=== PATIENT | male | born 1945 | race Caucasian/White ===

== ENCOUNTER → 2018-07-01 | Outpatient (CLI) | payer MEDICARE ==
[~2018-07-01] VITALS: Ht 185.4 cm; Wt 97.5 kg
[~2018-07-01] MED LIST: ALLO300T2 PO; ASPI-1197 PO; CHLO50TA PO; LOSA100T58 PO; METF-446 PO; METO100T14 PO; MULT-685 PO; OMEP40CA37 PO; REGADENOSON 0.4 MG/5 ML PF SYG IVP SCH; SIMV80TA91 PO
== END | disposition home or self-care (01) ==
LOC: SHCH 07:52
PROVIDERS: ATTEND Internal Medicine Cardiovascular Disease
DX: I25.9 Chronic ischemic heart disease, unspecified (principal); I25.10 Atherosclerotic heart disease of native coronary artery without angina pectoris
CPT/HCPCS: 78452; 93017; 96374; A9500 ×2; J2785

== ENCOUNTER 2018-08-05 07:06 | Observation (INO) | payer MEDICARE ==
[2018-08-02 08:39] VITALS: BP 134/63
[2018-08-02 08:47] LABS: BASOPHILS % (AUTO) 0.6 % (0.0-5.0); EOSINOPHILS % (AUTO) 3.3 % (0.0-8.0); HEMATOCRIT 44.5 % (42-54); LYMPHOCYTES % (AUTO) 27.7 % (21.0-51.0); MEAN CORPUSCULAR HEMOGLOBIN 31.8 pg (27.0-33.0); MEAN CORPUSCULAR HGB CONC 34.2 g/dL (32.0-36.0); MEAN CORPUSCULAR VOLUME 93.2 fL (79-99); MONOCYTES % (AUTO) 9.5 % (3.0-13.0); NEUTROPHILS % (AUTO) 58.9 % (40.0-77.0); PLATELET COUNT (AUTO) 142 K/uL (130-400); RED BLOOD CELL COUNT(AUTO) 4.78 MIL/uL (4.50-6.20); RED CELL DISTRIBUTION WIDTH 13.7 % (11.0-15.5); WHITE BLOOD COUNT (AUTO) 5.3 K/uL (4.8-10.8)
[2018-08-02 08:53] LABS: APPEARANCE,URINE Clear (CLEAR); BILIRUBIN,URINE Negative (NEGATIVE); COLOR,URINE Yellow (YELLOW); GLUCOSE, URINE (UA) Negative (NEGATIVE); KETONES,URINE Negative (NEGATIVE); LEUKOCYTE ESTERASE ,URINE Negative (NEGATIVE); NITRATE,URINE Negative (NEGATIVE); OCCULT BLOOD,URINE Negative (NEGATIVE); PROTEIN,URINE Negative (NEGATIVE)
[2018-08-02 08:58] LABS: CREATININE 1.4 mg/dL (0.5-1.5); INR 1.07 (0.85-1.15); PARTIAL THROMBOPLASTIN TIME 30.3 SEC (26.3-35.5); POTASSIUM 4.6 mmol/L (3.5-5.1); PROTHROMBIN TIME 11.2 SEC (9.6-11.6)
--- NOTE | 2018-08-02 17:06 | NUR ---
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 Called patient and advised him, no concerns voiced.
[2018-08-05] VITALS (18 sets, daily range): BP systolic 90–162; BP diastolic 40–76
[~2018-08-05] VITALS: Ht 182.9 cm; Wt 95.7 kg
[~2018-08-05 07:06] MED LIST changes: -ASPI-1197 PO; +ATOR-2 PO; -CHLO50TA PO; -METF-446 PO; -REGADENOSON 0.4 MG/5 ML PF SYG IVP SCH; -SIMV80TA91 PO; +SODIUM CHLORIDE 0.9% 500ML 500 ML IV SCH
[2018-08-05] MEDS ORDERED: SODIUM CHLORIDE 0.9% 1000ML 1,000 ML IV ONE (08:01)
[2018-08-05] MEDS ORDERED: SODIUM CHLORIDE 0.9% 1000ML 1,000 ML IV SCH (09:30)
[2018-08-05] MEDS ORDERED: NITROGLYCERIN 5 MG/ML 10 ML VIAL IV ONE (10:11)
[2018-08-05] MEDS ORDERED: IOHEXOL 350 MG/ML 100ML INFUS..BTL IV ONE (10:11)
[2018-08-05] MEDS ORDERED: LIDOCAINE HCL 2% 20ML ONE (10:11)
[2018-08-05] MEDS ORDERED: IOHEXOL-350 50ML VIAL IV ONE (10:11)
--- NOTE | 2018-08-05 10:19 | NUR ---
TF PATIENT TAKEN FOR TEARER PRESS CLIPPING VIA BED BY ISABEL/BIPIN
[2018-08-05] MEDS ORDERED: MIDAZOLAM HCL 1 MG/ML 2ML VIAL ONE (10:38)
[2018-08-05] MEDS ORDERED: IOHEXOL-350 75 ML VIAL IV ONE (10:49)
[2018-08-05] MEDS ORDERED: HEPARIN SODIUM 1000UNIT/ML 10ML VIAL ONE (10:55)
[2018-08-05] MEDS ORDERED: CLOPIDOGREL BISULFATE 300 MG TAB ONE (11:27)
[2018-08-05] MEDS ORDERED: ASPIRIN 325MG EC TAB 325 MG TABLET.DR PO ONE (11:27)
[2018-08-05] MEDS ORDERED: ACETAMINOPHEN-CODEINE 300/30MG TAB PO PRN ×2 (11:30)
[2018-08-05] MEDS ORDERED: TEMAZEPAM 30 MG CAP PO PRN (11:30)
[2018-08-05] MEDS ORDERED: ONDANSETRON HCL 4 MG/2 ML VIAL IVP PRN (11:30)
[2018-08-05] MEDS ORDERED: ONDANSETRON HCL 4 MG/2 ML VIAL IVP SCH (11:30)
[2018-08-05] MEDS ORDERED: MORPHINE SULFATE 5 MG/ML VIAL IVP SCH (11:30)
--- NOTE | 2018-08-05 11:41 | NUR ---
TSF PT. WAS STENTED AND WILL BE GOING TO RM 229. PER NATALIE/BIPIN.
--- NOTE | 2018-08-05 12:00 | NUR ---
RECEIVED FROM [employer] VIA BED ACCOMPANIED BY Shaneka LIRIANO RN. PT. [id number], RESP.'S EVEN AND UNLABORED. DENIES ANY C/O SOB, DENIES ANY CURRENT PAIN. RIGHT GROIN SOFT, 6FR. ARTERIAL SHEATH IN PLACE, NO ECCHYMOSIS OR HEMATOMA NOTED; INSTRUCTED ON STRICT BR PER MD ORDERS, VERBALIZED UNDERSTANDING. PLACED IN REVERSE [place] POSITION FOR COMFORT. CALL LIGHT WITHIN REACH, VERBALIZED ABILITY TO USE. SIDE RAILS UP.
--- NOTE | 2018-08-05 16:15 | NUR ---
STATES NEEDS TO HAVE BM. OFFERED BEDPAN. PT. DECLINED. STATES," WILL WAIT IT OUT (UNTIL BR COMPLETED)." SPOUSE AT BEDSIDE.
--- NOTE | 2018-08-05 16:50 | NUR ---
6FR. ARTERIAL SHEATH REMOVED INTACT BY Zhang HOOPER RN. PT. TOLERATED W/O C/O. RIGHT GROIN SOFT, NO HEMATOMA. CALL LIGHT WITHIN REACH.
--- NOTE | 2018-08-05 17:05 | NUR ---
RIGHT GROIN SOFT, UNCHANGED. CALL LIGHT WITHIN REACH.
--- NOTE | 2018-08-05 18:00 | NUR ---
CONT.'S ON BR. RIGHT GROIN, SOFT, NO ECCHYMOSIS OR HEMATOMA. CALL LIGHT WITHIN REACH.
--- NOTE | 2018-08-05 20:30 | NUR ---
S/P LEFT HEART CATH. RT. GROIN SOFT WITHOUT BLEEDING OR HEMATOMA. PEDAL PULSES PALPABLE. BEDREST OVER. PATIENT ASSISTED TO BATHROOM. TOLERATED WELL. HAD LARGE BM. BACK TO BED.
--- NOTE | 2018-08-05 21:30 | NUR ---
RT GROIN SOFT WITHOUT BLEEDING OR HEMATOMA. PEDAL PULSES PALPABLE.
--- NOTE | 2018-08-05 23:00 | NUR ---
RT. ROSY HUNTER.
[2018-08-06 03:46] VITALS: BP 111/68
[2018-08-06 05:33] LABS: HEMATOCRIT 42.4 % (42-54); MEAN CORPUSCULAR HEMOGLOBIN 31.6 pg (27.0-33.0); MEAN CORPUSCULAR HGB CONC 34.4 g/dL (32.0-36.0); NUCLEATED RED BLOOD CELLS 0.1 % (0.0-0.19); PLATELET COUNT (AUTO) 138 K/uL (130-400); RED BLOOD CELL COUNT(AUTO) 4.61 MIL/uL (4.50-6.20); RED CELL DISTRIBUTION WIDTH 13.9 % (11.0-15.5); WHITE BLOOD COUNT (AUTO) 7.1 K/uL (4.8-10.8)
[2018-08-06 05:47] LABS: CREATININE 1.4 mg/dL (0.5-1.5); POTASSIUM 4.1 mmol/L (3.5-5.1)
--- NOTE | 2018-08-06 06:00 | NUR ---
RT. GROIN SOFT WITHOUT BLEEDING OR HEMATOMA. PEDAL PULSES PALPABLE.
[2018-08-06] MEDS ORDERED: CLOP75TA32 PO (06:08)
[2018-08-06] MEDS ORDERED: PANTOPRAZOLE SODIUM 40 MG TABLET.DR PO SCH (07:30)
[2018-08-06 07:45] VITALS: BP 129/68
[2018-08-06] MEDS ORDERED: ASPIRIN 81MG TAB.CHEW PO SCH (08:00)
[2018-08-06] MEDS ORDERED: ATORVASTATIN CALCIUM 40 MG TABLET PO SCH (09:00)
[2018-08-06] MEDS ORDERED: MULTIVITAMIN TABLET PO SCH (09:00)
[2018-08-06] MEDS ORDERED: LOSARTAN 100 MG TABLET PO SCH (09:00)
[2018-08-06] MEDS ORDERED: METOPROLOL TARTRATE 50 MG TAB PO SCH (09:00)
[2018-08-06] MEDS ORDERED: NON-FORMULARY MEDICATION 1 EACH (Omeprazole 40 MG) PO SCH (09:00)
[2018-08-06] MEDS ORDERED: CLOPIDOGREL BISULFATE 75 MG TAB PO SCH (09:00)
[2018-08-06] MEDS ORDERED: ALLOPURINOL 300 MG TABLET PO SCH (09:00)
--- NOTE | 2018-08-06 09:00 | NUR ---
SITTING UP IN BED WATCHING TELEVISION WITHOUT C/O. CALL LIGHT WITHIN REACH.
--- NOTE | 2018-08-06 10:00 | NUR ---
HL REMOVED, CATHETER INTACT. DISCHARGE INSTRUCTIONS GIVEN, PT. AND SPOUSE AT BEDSIDE VERBALIZED MUTUAL UNDERSTANDING.
== END 2018-08-06 10:15 | disposition home or self-care (01) ==
LOC: DAH 07:06 → DAHIP 07:07 → 2AH 12:09
PROVIDERS: ADMIT Internal Medicine Cardiovascular Disease; ATTEND Internal Medicine Cardiovascular Disease
DX: I25.119 Atherosclerotic heart disease of native coronary artery with unspecified angina pectoris (principal); I12.9 Hypertensive chronic kidney disease with stage 1 through stage 4 chronic kidney disease, or unspecified chronic kidney disease; N18.3 Chronic kidney disease, stage 3 (moderate); E78.5 Hyperlipidemia, unspecified; Z79.899 Other long term (current) drug therapy; Z95.1 Presence of aortocoronary bypass graft
CPT/HCPCS: 36415 ×3; 71045; 80048 ×2; 80061; 81003; 85025; 85027; 85610; 85730 ×3; 92920; 93005 ×3; 93459; A4606; C1725; C1769; C1887; C1894; G0378 ×24; J1644 ×2; J2250; J3490 ×2; J7030; Q9965; Q9967 ×3; 99156; 99157

== ENCOUNTER → 2021-04-19 | Outpatient (CLI) | payer MEDICARE ==
[~2021-04-19] MED LIST changes: +CLOP75TA32 PO; +OMEP40CA21 PO; -OMEP40CA37 PO; -SODIUM CHLORIDE 0.9% 500ML 500 ML IV SCH
== END | disposition home or self-care (01) ==
LOC: SHCH 13:56
PROVIDERS: ATTEND Internal Medicine Cardiovascular Disease
DX: I35.2 Nonrheumatic aortic (valve) stenosis with insufficiency (principal); I12.9 Hypertensive chronic kidney disease with stage 1 through stage 4 chronic kidney disease, or unspecified chronic kidney disease; N18.9 Chronic kidney disease, unspecified; I25.10 Atherosclerotic heart disease of native coronary artery without angina pectoris; E78.5 Hyperlipidemia, unspecified; Z95.1 Presence of aortocoronary bypass graft
CPT/HCPCS: 93306

== ENCOUNTER 2021-06-16 05:46 | Day surgery (SDC) | payer MEDICARE ==
[2021-06-13 13:57] LABS: BASOPHILS % (AUTO) 0.5 % (0.0-5.0); EOSINOPHILS % (AUTO) 2.3 % (0.0-8.0); HEMATOCRIT 47.9 % (42-54); LYMPHOCYTES % (AUTO) 22.5 % (21.0-51.0); MEAN CORPUSCULAR VOLUME 94.1 fL (79-99); MONOCYTES % (AUTO) 10.7 % (3.0-13.0); NEUTROPHILS % (AUTO) 63.7 % (40.0-77.0); PLATELET COUNT (AUTO) 165 K/uL (130-400); RED BLOOD CELL COUNT(AUTO) 5.09 MIL/uL (4.50-6.20); RED CELL DISTRIBUTION WIDTH 13.3 % (11.0-15.5); WHITE BLOOD COUNT (AUTO) 7.9 K/uL (4.8-10.8)
[2021-06-13 14:04] LABS: CREATININE 1.8 mg/dL (0.5-1.5); POTASSIUM 4.7 mmol/L (3.5-5.1)
[2021-06-13 14:09] LABS: INR 1.06 (0.85-1.15); PROTHROMBIN TIME 11.5 SEC (9.6-11.6)
[2021-06-13 14:11] LABS: PARTIAL THROMBOPLASTIN TIME 28.9 SEC (26.3-35.5)
[2021-06-16] VITALS (8 sets, daily range): BP systolic 111–137; BP diastolic 56–80
[~2021-06-16] VITALS: Ht 185.4 cm; Wt 109.2 kg
[~2021-06-16 05:46] MED LIST changes: +AMLO-258 PO; +ASPI-1443 PO; -ATOR-2 PO; +EMPA10TA PO; +EPLE50TA9 PO; +FURO20TA4 PO; +GABA300C PO; -METO100T14 PO; +MULT-1367 PO; -MULT-685 PO; +TAMS-1 PO; +VITA0.4T20 PO
[2021-06-16] MEDS ORDERED: 0.9%NACL 1000ML 1,000 ML IV ONE (06:06)
[2021-06-16] MEDS ORDERED: ATOR-2 PO (06:42)
[2021-06-16] MEDS ORDERED: CARV25TA PO (06:42)
[2021-06-16] MEDS ORDERED: MIDAZOLAM HCL 1 MG/ML 2ML VIAL ONE ×2 (07:12→10:04)
[2021-06-16] MEDS ORDERED: LIDOCAINE HCL 1% MDV 50ML VIAL ONE (07:12)
[2021-06-16] MEDS ORDERED: MEPERIDINE-PF 25 MG/ML SYG ONE ×2 (07:12→10:04)
[2021-06-16] MEDS ORDERED: HEPARIN 10,000 UNIT/10ML (1,000 UNIT/ML) VIAL ONE (07:13)
[2021-06-16] MEDS ORDERED: HEPARIN 1,000 UNIT VIAL ONE (11:03)
[2021-06-16] MEDS ORDERED: PROTAMINE SULFATE 10 MG/ML 25ML VIAL IV ONE (11:44)
[2021-06-16] MEDS ORDERED: IOHEXOL-350 50ML VIAL IV ONE (11:45)
[2021-06-16] MEDS ORDERED: METOPROLOL TARTRATE 1 MG/ML 5ML VIAL IV ONE (11:52)
[2021-06-16] MEDS ORDERED: METO-391 PO (12:32)
[2021-06-16] MEDS ORDERED: METOPROLOL SUCCINATE 50 MG TAB.SR.24H PO SCH (13:00)
== END 2021-06-16 16:15 | disposition home or self-care (01) ==
LOC: DAH 05:46
PROVIDERS: ATTEND Internal Medicine Cardiovascular Disease
DX: I49.3 Ventricular premature depolarization (principal); I25.2 Old myocardial infarction; I25.10 Atherosclerotic heart disease of native coronary artery without angina pectoris; I12.9 Hypertensive chronic kidney disease with stage 1 through stage 4 chronic kidney disease, or unspecified chronic kidney disease; N18.9 Chronic kidney disease, unspecified; E78.5 Hyperlipidemia, unspecified; Z79.01 Long term (current) use of anticoagulants; Z79.899 Other long term (current) drug therapy; Z98.890 Other specified postprocedural states; Z95.1 Presence of aortocoronary bypass graft; Z87.891 Personal history of nicotine dependence; Z72.89 Other problems related to lifestyle; Z79.82 Long term (current) use of aspirin
CPT/HCPCS: 36415; 80048; 82948 ×2; 85025; 85347 ×2; 85610; 85730; 93005 ×2; 93623; 93654; A4215; A4216; A4221; A4222; A4223 ×3; A4606; A4649 ×2; A4663; C1730; C1731; C1732; C1760; C1894 ×5; J1644 ×3; J2175 ×2; J2250 ×2; J2720; J3490 ×2; J7030; Q9967; 99156; 99157

== ENCOUNTER → 2022-05-22 | Outpatient (CLI) | payer MEDICARE ==
[~2022-05-22] MED LIST changes: -ALLO300T2 PO; +ATOR-2 PO; +CARV25TA PO; +METO-391 PO
== END | disposition home or self-care (01) ==
LOC: SHCH 09:11
PROVIDERS: ATTEND Internal Medicine Cardiovascular Disease
DX: I35.0 Nonrheumatic aortic (valve) stenosis (principal); I49.3 Ventricular premature depolarization; I11.9 Hypertensive heart disease without heart failure; I48.91 Unspecified atrial fibrillation
CPT/HCPCS: 93306

== ENCOUNTER → 2022-12-28 | Outpatient (CLI) | payer MEDICARE ==
[~2022-12-28] MED LIST changes: -LOSA100T58 PO; +LOSA100T59 PO
== END | disposition home or self-care (01) ==
LOC: RAH 07:55
PROVIDERS: ATTEND Physical Medicine & Rehabilitation
DX: M47.27 Other spondylosis with radiculopathy, lumbosacral region (principal); M43.16 Spondylolisthesis, lumbar region; M48.07 Spinal stenosis, lumbosacral region; I70.0 Atherosclerosis of aorta
CPT/HCPCS: 72114

== ENCOUNTER → 2023-09-14 | Outpatient (CLI) | payer MEDICARE ==
[~2023-09-14] MED LIST changes: +EPLE50TA16 PO; -EPLE50TA9 PO
== END | disposition home or self-care (01) ==
LOC: RAH 11:30
PROVIDERS: ATTEND Family Medicine
DX: Z01.818 Encounter for other preprocedural examination (principal); R05.9 Cough, unspecified
CPT/HCPCS: 71046

== ENCOUNTER 2024-06-16 05:54 | Day surgery (SDC) | payer MEDICARE ==
[2024-06-16] VITALS (10 sets, daily range): BP systolic 91–116; BP diastolic 54–63; PULSE 54–69; RESP 14–17; TEMP 97–97.9
[~2024-06-16] VITALS: Ht 177.8 cm; Wt 113.4 kg
[~2024-06-16 05:54] MED LIST changes: +ALLO300T2 PO; +AMLO-257 PO; -AMLO-258 PO; -ATOR-2 PO; -CARV25TA PO; -CLOP75TA32 PO; -EMPA10TA PO; +ENALAPRIL PO; -EPLE50TA16 PO; +GABA-1405 PO; -GABA300C PO; +GLIP-300 PO; +ROSU40TA88 PO; -TAMS-1 PO; +TAMS-55 PO; +TOPI-97 PO; -VITA0.4T20 PO
[2024-06-16] MEDS ORDERED: 0.9%NACL 1000ML 1,000 ML IV ONE (06:13)
[2024-06-16] MEDS: 0.9%NACL 1000ML 1,000 ML IV ONE (07:17)
[2024-06-16] MEDS ORDERED: proPOFol 10 MG/ML 20ML VIAL IV ONE (08:31)
--- NOTE | 2024-06-16 09:36 | NUR ---
Full and complete discharge instructions given to Patient and Family both verbally and in writing. Explained GI procedure precautions and follow up. All questions answered. PIV removed with catheter tip intact. Home with Family W/C to POV.
== END 2024-06-16 09:30 | disposition home or self-care (01) ==
LOC: DAH 05:54 → ENDO 05:54
PROVIDERS: ATTEND Internal Medicine Gastroenterology
DX: K22.711 Barrett's esophagus with high grade dysplasia (principal); K29.50 Unspecified chronic gastritis without bleeding; I10 Essential (primary) hypertension; K21.9 Gastro-esophageal reflux disease without esophagitis; M10.9 Gout, unspecified; E78.5 Hyperlipidemia, unspecified; I25.10 Atherosclerotic heart disease of native coronary artery without angina pectoris; K44.9 Diaphragmatic hernia without obstruction or gangrene; D13.1 Benign neoplasm of stomach; K29.70 Gastritis, unspecified, without bleeding; K59.04 Chronic idiopathic constipation; K57.30 Diverticulosis of large intestine without perforation or abscess without bleeding; E66.9 Obesity, unspecified; Z86.0100 Personal history of colon polyps, unspecified; Z68.42 Body mass index [BMI] 45.0-49.9, adult; Z95.5 Presence of coronary angioplasty implant and graft; Z88.1 Allergy status to other antibiotic agents; Z79.82 Long term (current) use of aspirin; Z79.899 Other long term (current) drug therapy
CPT/HCPCS: 43239; 82948; J7030; J2704; A4215; A4223; A4222; A4221; A4663; A4606; J3490